=== PATIENT | male | born 1985 | race Two or more races ===

== ENCOUNTER 2021-06-20 19:15 | Emergency (ER) | payer SELFPAY ==
[~2021-06-20] VITALS: Ht 170.2 cm; Wt 85.7 kg
[2021-06-20 19:28] VITALS: BP 135/91
== END 2021-06-20 19:41 | disposition home or self-care (01) ==
LOC: EDBD 19:15 → ER 19:21
DX: F41.9 Anxiety disorder, unspecified (principal); E87.8 Other disorders of electrolyte and fluid balance, not elsewhere classified
CPT/HCPCS: 93005